=== PATIENT | male | born 1985 | race Caucasian/White ===

== ENCOUNTER 2019-03-13 12:26 | Emergency (ER) | payer BC ==
[~2019-03-13] VITALS: Ht 185.4 cm; Wt 145.4 kg
[2019-03-13] MEDS ORDERED: ZYRTTAB8 PO (12:32)
[2019-03-13] MEDS ORDERED: OXYM05SP (12:32)
--- NOTE | 2019-03-13 13:44 | REP ---
REASON: History of dislocation, now having shoulder pain. FINDINGS: Three views of the left shoulder were performed. The acromioclavicular and glenohumeral relationships are within normal limits. There is no acute fracture or destructive osseous lesions. Electronically Signed by Isidoro Ventura DO 03/13/2019 02:20 P
[2019-03-13] MEDS ORDERED: NAPR-837 PO (14:30)
[2019-03-13 14:35] VITALS: BP 146/89
== END 2019-03-13 14:44 | disposition home or self-care (01) ==
LOC: M ED 12:26
DX: S43.002A Unspecified subluxation of left shoulder joint, initial encounter (principal); X58.XXXA Exposure to other specified factors, initial encounter; Y92.099 Unspecified place in other non-institutional residence as the place of occurrence of the external cause; Y93.9 Activity, unspecified; Y99.9 Unspecified external cause status; J30.2 Other seasonal allergic rhinitis; Z79.899 Other long term (current) drug therapy

== ENCOUNTER → 2019-03-27 | Outpatient (CLI) | payer BC ==
[~2019-03-27] MED LIST: CONRAY-43 43% 50ML VIAL (Q9960) As Ordered ONE; NAPR-837 PO; OXYM05SP; PROHANCE 279.3MG/ML 5ML VIAL (A9576) As Ordered ONE; ZYRTTAB8 PO
--- NOTE | 2019-03-27 13:29 | REP ---
MR arthrography shoulder: with pre and post intra-articular gadolinium enhanced saline injected imaging: History: Left shoulder pain with instability. Question rotator cuff tear. The patient reports several previous dislocations. Comparison MRI study February 05, 2012. Comparison radiographs March 13, 2019. Technique: The injection procedure is performed and dictated separately. Pre and post intra-articular gadolinium enhanced saline injected imaging is acquired. Imaging planes include axial, oblique coronal, and oblique sagittal projection images. The patient was unable to be positioned for the ABER projection images usually obtained. T1 T2-weighted scans are included with and without fat saturation. MRI findings: There i s a marrow edema/contusion pattern in the superolateral aspect of the humeral head on preinjection images. There is some mild marrow edema in the anterior glenoid as well. This may reflect previous anterior inferior glenohumeral dislocation with contusion. No impaction fracture is visible either in the glenoid or in the humeral head however. Finding is new from the 2011 prior MR images. A small quantity of glenohumeral joint effusion on preinjection images. The AC joint shows hypertrophy with inferior spurring indenting the musculotendinous junction of the supraspinatus. Postinjection imaging shows good filling and enhancement of the glenohumeral articulation. There is diffuse enhancement in this subscapularis tendon which is normal on preinjection imaging suggesting injection artifact. There is no evidence of rotator cuff tear. There is some fraying and swelling of the anterior labral cartilage. No loose body is seen. The infraspinatus and biceps tendons appear intact. There is tendonitis tendinosis change again noted in the supraspinatus tendon. No full-thickness cuff tear is seen. Impression: Marrow edema/contusion pattern in the superolateral humeral head and in the anterior bony glenoid. Subtle Hill-Sachs impaction injury suspected. Supraspinatus tendonitis tendinosis change. AC joint hypertrophy. Injection artifact in the subscapularis tendon on post injection images. Electronically Signed by Casey Rodríguez MD 03/27/2019 03:11 P
--- NOTE | 2019-03-27 15:20 | REP ---
Reason For Exam/Comment: Left shoulder pain with instability Procedure: Left shoulder MRI arthrogram The procedure was performed by DENIS Watson, under the direct supervision of Dr. Rodríguez. The benefits and risks including but not limited to pain, infection, bleeding and anaphylaxis were explained to the patient and informed consent was obtained both verbally and written. Directly prior to the start of the procedure, a formal timeout was completed in the procedure room. Technique: The left glenohumeral joint was localized using fluoroscopic guidance. The skin was prepped and draped in the usual sterile fashion. 3 mL of 1% lidocaine was used as a local anesthetic. Using fluoroscopic guidance a 22-gauge spinal needle was inserted and advanced to the left glenohumeral joint space . 2 mL of Conray 43 was injected to verify needle placement. 12 mL of a solution containing 20 ml of sterile saline and a 0.15 ml of ProHance was injected into the joint. The needle was removed and the patient was taken MRI for post procedural imaging. The patient tolerated the procedure well and there were no immediate complications. 0.4 minutes of fluoroscopy time was utilized for this procedure. Some fluoroscopic images are performed with last image hold technology. These images require no additional radiation. Reviewed by DENIS Reza 03/27/2019 09:12 A Electronically Signed by Casey Rodríguez MD 03/27/2019 03:12 P
== END ==
LOC: M RADPRO 06:21
PROVIDERS: ATTEND Physician Assistant
DX: M75.82 Other shoulder lesions, left shoulder (principal); R60.0 Localized edema; M24.412 Recurrent dislocation, left shoulder
CPT/HCPCS: 23350; 73223; 77002; A9576; Q9960

== ENCOUNTER 2019-06-19 05:30 | Day surgery (SDC) | payer BC ==
[~2019-06-19] VITALS: Ht 185.4 cm; Wt 150.6 kg
[~2019-06-19 05:30] MED LIST changes: +AZEL0.05 OU; +CETI5SOL3 PO; -CONRAY-43 43% 50ML VIAL (Q9960) As Ordered ONE; +OMEP20CA4 PO; -PROHANCE 279.3MG/ML 5ML VIAL (A9576) As Ordered ONE; +QNASL; +[UNRECOGNIZED DRUG - REMARK] PA; +allergy shot
[2019-06-19] MEDS ORDERED: ROPIvacaine 0.5% 30 ML INJECTION (J2795 PER 1MG) ONE (05:31)
[2019-06-19] MEDS ORDERED: LR 1,000 ML IV ONE (06:00)
[2019-06-19] MEDS ORDERED: ceFAZolin SOD 2 GM in IV 1 EA IV ONE (06:00)
[2019-06-19] MEDS ORDERED: ceFAZolin SOD 1 GM in D5W MINI-BAG PLUS 50 ML IV ONE (06:00)
[2019-06-19] MEDS ORDERED: LIDOCAINE 1% MDV 20ML VIAL As Ordered ONE (06:57)
[2019-06-19] MEDS ORDERED: EPINEPHrine 1MG/ML INJ 30ML MD-VIAL As Ordered ONE (06:57)
[2019-06-19] MEDS ORDERED: LIDOCAINE 2% INJ 100 MG/5 ML SDV (FOR ANES.) As Ordered ONE (07:10)
[2019-06-19] MEDS ORDERED: ROCURONIUM BROMIDE 50 MG/5 ML VIAL As Ordered ONE (07:10)
[2019-06-19] MEDS ORDERED: PROPOFOL 200 MG/20 ML VIAL As Ordered ONE (07:10)
[2019-06-19] MEDS ORDERED: MIDAZOLAM INJ 2 MG/2 ML VIAL (J2250) As Ordered ONE ×2 (07:11→07:17)
[2019-06-19] MEDS ORDERED: fentaNYL 250 MCG/5 ML INJECTION (J3010) As Ordered ONE (07:11)
[2019-06-19] MEDS ORDERED: fentaNYL 100 MCG/2 ML INJECTION (J3010) As Ordered ONE (07:17)
[2019-06-19] MEDS ORDERED: fentaNYL 100 MCG/2 ML INJECTION (J3010) IV ONE (08:00)
[2019-06-19] MEDS ORDERED: MIDAZOLAM INJ 2 MG/2 ML VIAL (J2250) IV ONE (08:00)
[2019-06-19 09:00] VITALS: BP 160/78
== END 2019-06-19 09:24 | disposition home or self-care (01) ==
LOC: M SDC 05:30
PROVIDERS: ATTEND Orthopaedic Surgery
DX: M25.312 Other instability, left shoulder (principal); M24.412 Recurrent dislocation, left shoulder; Z53.8 Procedure and treatment not carried out for other reasons; K21.9 Gastro-esophageal reflux disease without esophagitis; G47.30 Sleep apnea, unspecified; Z79.899 Other long term (current) drug therapy
CPT/HCPCS: 64415; J2250; J2795

== ENCOUNTER 2019-06-21 10:53 | Day surgery (SDC) | payer BC ==
[~2019-06-21] VITALS: Ht 185.4 cm; Wt 150.1 kg
[~2019-06-21 10:53] MED LIST changes: +LR 1,000 ML IV ONE; +ceFAZolin SOD 1 GM in D5W MINI-BAG PLUS 50 ML IV ONE; +ceFAZolin SOD 2 GM in IV 1 EA IV ONE; +fentaNYL 100 MCG/2 ML INJECTION (J3010) IV SCH
[2019-06-21] MEDS ORDERED: EPINEPHrine INJ 1 MG/ML 1ML AMP ONE (10:54)
[2019-06-21] MEDS ORDERED: dexameTHASONE 10 MG/1 ML VIAL PRES.FREE (J1100) ONE (10:54)
[2019-06-21] MEDS ORDERED: ROPIvacaine 0.5% 30 ML INJECTION (J2795 PER 1MG) ONE (10:54)
[2019-06-21] MEDS ORDERED: EPINEPHrine 1MG/ML INJ 30ML MD-VIAL As Ordered ONE (14:30)
[2019-06-21] MEDS ORDERED: MIDAZOLAM INJ 2 MG/2 ML VIAL (J2250) As Ordered ONE (14:37)
[2019-06-21] MEDS ORDERED: fentaNYL 100 MCG/2 ML INJECTION (J3010) As Ordered ONE ×2 (14:37→15:59)
[2019-06-21] MEDS ORDERED: EPINEPHrine INJ 1 MG/ML 1ML AMP As Ordered ONE (14:38)
[2019-06-21] MEDS: MIDAZOLAM INJ 2 MG/2 ML VIAL (J2250) IV SCH ×2 (14:45→14:52)
[2019-06-21] MEDS ORDERED: PROPOFOL 200 MG/20 ML VIAL As Ordered ONE ×2 (15:58→16:19)
[2019-06-21] MEDS ORDERED: LIDOCAINE 2% INJ 100 MG/5 ML SDV (FOR ANES.) As Ordered ONE (15:58)
[2019-06-21] MEDS ORDERED: ROCURONIUM BROMIDE 50 MG/5 ML VIAL As Ordered ONE (15:58)
[2019-06-21] MEDS ORDERED: METOCLOPRAMIDE INJ 10MG/2ML VIAL (J2765) As Ordered ONE (16:33)
[2019-06-21] MEDS ORDERED: ONDANSETRON 4MG/2ML VIAL (J2405) As Ordered ONE (16:53)
[2019-06-21] MEDS ORDERED: NEOSTIGMINE 10 MG/10 ML VIAL (J2710) As Ordered ONE (16:53)
[2019-06-21] MEDS ORDERED: GLYCOPYRROLATE INJ 0.2 MG/ML 2 ML VIAL As Ordered ONE (16:53)
[2019-06-21] MEDS ORDERED: DESFLURANE 240 ML INHALANT As Ordered ONE (18:10)
[2019-06-21] MEDS ORDERED: LR 1,000 ML IV SCH ×2 (19:30)
[2019-06-21] MEDS ORDERED: ONDANSETRON 4MG/2ML VIAL (J2405) IV PRN (19:30)
[2019-06-21] MEDS ORDERED: oxyCODONE 5MG TAB PO PRN (19:30)
[2019-06-21] MEDS ORDERED: fentaNYL 100 MCG/2 ML INJECTION (J3010) IV PRN (19:30)
[2019-06-21 20:20] VITALS: BP 154/92
--- NOTE | 2019-06-22 13:59 | RO ---
DATE OF SURGERY: 06/21/2019 PREOPERATIVE DIAGNOSES: 1. Left shoulder anterior labral tear with instability. 2. Left shoulder posterior labral tear with instability. 3. Left shoulder chondromalacia. POSTOPERATIVE DIAGNOSES: 1. Left shoulder anterior labral tear with instability. 2. Left shoulder posterior labral tear with instability. 3. Left shoulder chondromalacia. 4. Superior labral tear. PROCEDURES: 1. Left shoulder arthroscopic anterior labral repair (Bankart). 2. Left shoulder posterior labral repair. 3. Left shoulder arthroscopic superior labral debridement. 4. Left shoulder arthroscopic chondroplasty of the glenoid and humeral head. SURGEON: Moris Goodson MD CITY EDITOR: PADMA Faria ANESTHESIA: General with preoperative nerve block. INTRAVENOUS (IV) FLUIDS: Lactated Ringer. ESTIMATED BLOOD LOSS: 5 mL. IMPLANTS: Arthrex 3 mm SutureTak times one and Arthrex 2.9 mm PushLock anchor with labral tape times six. CLOSURE: Nylon. DESCRIPTION OF PROCEDURE: The patient was identified in the preoperative holding area. The left shoulder was marked by me. He had an interscalene nerve block by anesthesia. He was brought to the operating room and placed supine on a well-padded operating room (OR) table with the large beanbag. General anesthesia was then induced. An examination under anesthesia revealed 170 degrees of passive forward flexion, 80 degrees of external rotation with his arm at his side. He had a grade 2+ anterior and posterior load and shift. Extra assist moving help was then required, and he was carefully placed into the [id number] lateral decubitus position with an axillary roll, and all bony prominences well-padded. Bilateral Venodyne boots for deep venous thrombosis (DVT) prophylaxis. The left arm was placed into Arthrex STaR (Shoulder Traction and Rotation) Sleeve lateral decubitus traction baeza with 12 pounds of traction. The left shoulder was then prepped and draped in normal sterile fashion with ChloraPrep. He received 3 grams of intravenous (IV) cefazolin for antibiotic prophylaxis within 1 hour of incision. Diya Alexander was present for the entire procedure and participated all essential portions of the procedure. This included patient positioning and draping, holding the arthroscope, providing axial traction and manipulation to the arm to assist with suture passage, assisting with anchor placement, assisting with loading anchors and cutting sutures arthroscopically, and wound closure and applying the sling. I am requesting a modifier 22 for this procedure due to the significant complexity of the repair and due to the patient's size. The patient has a body mass index (BMI) of 44 and weighs 147 kg. Due to his size, we needed special equipment, specifically a hip arthroscope with appropriate trocars and extra-long cannulas. Given the chronicity of his instability, this also required a complex repair of both four anchor anterior labral repair and a three anchor posterior labral repair. So, due to the patient's size and large nature of this tear, this was a significantly complex case. The left shoulder was insufflated with lactated Ringer. A modified posterolateral portal made with an 11 blade. A 30-degree hip arthroscope was then introduced into the joint, and a diagnostic arthroscopy was carried out. There was tearing of the superior labrum consistent with a low-grade superior labrum anterior and posterior (SLAP) tear. The long head of biceps was unremarkable. There was diffuse tearing of the anterior labrum with some impaction at the anterior inferior glenoid consistent with some low-grade bone loss despite the CAT scan showing no bone loss. The labral tear then extended around the 6 o'clock position posteriorly. There was diffuse grade 1 with a few areas of grade 2 chondromalacia of the glenoid and a similar condition of the humeral head. No full-thickness cartilage loss. There was also a small Hill-Sachs in the posterior humeral head. The rotator cuff was carefully inspected. There was no tearing. I then established a modified anterior inferior portal very carefully due to the patient's body habitus. This gave the appropriate angle for drilling into the glenoid. An accessory superolateral portal was established and two extra-long Arthrex cannulas were placed. There was a positive drive-through sign, and the humeral head was inferiorly subluxated. Hooked radiofrequency cautery was then used to develop the plane between the anterior labral tear and the glenoid. Labral elevators then used to subperiosteally dissect, and then a rasp was used to create a bleeding surface on the glenoid. The anterior inferior capsule and labrum was mobilized. I then placed the Arthrex 3 mm SutureTak at the 5 o'clock position. FiberWire sutures were passed through the anterior band of the inferior glenohumeral ligament with a suture lasso, and they were passed in a horizontal mattress fashion. My security assistant applied a posterior Vector to the proximal humerus, and then arthroscopic knots were tied by hand with alternating half hitches. Sutures cut with the die cutter operator. Next, the lasso was used to shuttle labral tape through capsule and labrum as I proceeded from an inferior to superior direction. A total of three 2.9 mm PushLock anchor were placed, and these anchors were placed from inferior to superior to facilitate a capsular shift. This nicely restored the bumper and eliminated the drive-through sign. The arthroscope was now placed into the anterior superior portal and a third long cannula placed into the posterior portal. The hooked cautery was used to develop the plane between the posterior inferior labral tear and the glenoid, and then again labral elevators were used to subperiosteally dissect. I then placed a total of three 2.9 mm PushLock anchors, the first one grasping the posterior band of the inferior glenohumeral ligament, placed at the 7 o'clock position. Anchors were then appropriately spaced proceeding up the posterior glenoid. Although he had had over 15-year history of posterior dislocations, I did not feel that any additional anchors were required beyond the equator. The humeral head was now centrally located on the glenoid. Chondroplasty performed with a shaver of the humeral head and glenoid. The shoulder was then irrigated and drained. Portals were closed with nylon suture, and then a bulky sterile dressing was applied, and then he was carefully placed into the R-2 sling. He was carefully transferred to the hospital bed, extubated, and transferred to the postanesthesia care unit (PACU) in stable condition. COMPLICATIONS: None.
== END 2019-06-21 20:30 | disposition home or self-care (01) ==
LOC: M SDC 10:53
PROVIDERS: ATTEND Orthopaedic Surgery
DX: S43.432A Superior glenoid labrum lesion of left shoulder, initial encounter (principal); S43.492A Other sprain of left shoulder joint, initial encounter; M94.212 Chondromalacia, left shoulder; M24.412 Recurrent dislocation, left shoulder; M25.312 Other instability, left shoulder; K21.9 Gastro-esophageal reflux disease without esophagitis; R06.83 Snoring; G47.33 Obstructive sleep apnea (adult) (pediatric); Z79.899 Other long term (current) drug therapy; Z68.41 Body mass index [BMI] 40.0-44.9, adult
CPT/HCPCS: 29806; 29826; 64415; C1713; J0690; J1100; J2250; J2405; J2710; J2765; J2795; J3010

== ENCOUNTER → 2020-06-05 | Outpatient (CLI) | payer OTHER ==
[~2020-06-05] MED LIST changes: +ISOVUE-300 61% 50ML VIAL As Ordered ONE; -LR 1,000 ML IV ONE; +OMEP1CAP73 PO; -OMEP20CA4 PO; +PROHANCE 279.3MG/ML 5ML VIAL As Ordered ONE; -ceFAZolin SOD 1 GM in D5W MINI-BAG PLUS 50 ML IV ONE; -ceFAZolin SOD 2 GM in IV 1 EA IV ONE; -fentaNYL 100 MCG/2 ML INJECTION (J3010) IV SCH
== END ==
LOC: M RADPRO 06:39
PROVIDERS: ATTEND Orthopaedic Surgery
DX: M25.512 Pain in left shoulder (principal); Z53.9 Procedure and treatment not carried out, unspecified reason

== ENCOUNTER → 2022-04-15 | Outpatient (CLI) | payer OTHER ==
[~2022-04-15] MED LIST changes: -ISOVUE-300 61% 50ML VIAL As Ordered ONE; -PROHANCE 279.3MG/ML 5ML VIAL As Ordered ONE
[2022-04-15 10:52] LABS: BASO # 0.1 10^3/uL (0.0-0.2); EOS # 0.4 10^3/uL (0.0-0.5); EOS % 4.8 % (0.0-3.0); HEMATOCRIT 43.8 % (42.0-52.0); HEMOGLOBIN 15.1 g/dl (13.5-17.5); LYMPH # 2.2 10^3/uL (1.5-5.0); LYMPH % 27.7 % (24.0-44.0); MEAN CORPUSCULAR HEMOGLOBIN 29.7 pg (27.0-33.0); MEAN CORPUSCULAR HGB CONC 34.5 g/dl (32.0-36.5); MEAN CORPUSCULAR VOLUME 86.1 fl (80.0-96.0); MONO # 0.6 10^3/uL (0.0-0.8); MONO % 7.3 % (2.0-8.0); NEUTROPHILS # 4.7 10^3/uL (1.5-8.5); NEUTROPHILS % 58.8 % (36.0-66.0); PLATELET COUNT, AUTOMATED 237 10^3/uL (150-450); RED BLOOD COUNT 5.09 10^6/uL (4.30-6.10)
[2022-04-15 11:49] LABS: ALBUMIN 4.3 GM/DL (3.2-5.2); ALT/SGPT 78 U/L (12-78); BILIRUBIN,TOTAL 0.5 MG/DL (0.2-1.0); BLOOD UREA NITROGEN 12 MG/DL (7-18); CALCIUM LEVEL 9.5 MG/DL (8.5-10.1); CARBON DIOXIDE LEVEL 28 MEQ/L (21-32); CHLORIDE LEVEL 108 MEQ/L (98-107); CHOLESTEROL LEVEL 124 MG/DL (<200); CHOLESTEROL RISK RATIO 3.179 (<5); CREATININE FOR GFR 0.88 MG/DL (0.70-1.30); GLOMERULAR FILTRATION RATE > 60.0 (>60); GLUCOSE, FASTING 96 MG/DL (70-100); HDL CHOLESTEROL 39 MG/DL (>40); LDL CHOLESTEROL 65 MG/DL (<100); NON-HDL-C 85 MG/DL; POTASSIUM SERUM 4.1 MEQ/L (3.5-5.1); SODIUM LEVEL 141 MEQ/L (136-145); TOTAL PROTEIN 7.8 GM/DL (6.4-8.2); TRIGLYCERIDES LEVEL 100 MG/DL (<150)
== END ==
LOC: M LAB 09:19
PROVIDERS: ATTEND Family Medicine
DX: E66.9 Obesity, unspecified (principal)

== ENCOUNTER → 2022-08-24 | Outpatient (CLI) | payer OTHER | LOC: M RAD 16:48 | PROVIDERS: ATTEND Family Medicine | DX: J32.9 Chronic sinusitis, unspecified (principal) ==

== ENCOUNTER → 2022-09-23 | Outpatient (CLI) | payer OTHER ==
[2022-09-23 12:32] LABS: BASO # 0.1 10^3/uL (0.0-0.2); BASO % 0.7 % (0.0-1.0); EOS # 0.3 10^3/uL (0.0-0.5); EOS % 3.9 % (0.0-3.0); HEMATOCRIT 43.9 % (42.0-52.0); LYMPH # 1.6 10^3/uL (1.5-5.0); LYMPH % 22.8 % (24.0-44.0); MEAN CORPUSCULAR HEMOGLOBIN 29.3 pg (27.0-33.0); MEAN CORPUSCULAR HGB CONC 34.2 g/dl (32.0-36.5); MEAN CORPUSCULAR VOLUME 85.7 fl (80.0-96.0); MONO # 0.4 10^3/uL (0.0-0.8); MONO % 5.5 % (2.0-8.0); NEUTROPHILS # 4.6 10^3/uL (1.5-8.5); NEUTROPHILS % 66.7 % (36.0-66.0); PLATELET COUNT, AUTOMATED 228 10^3/uL (150-450); RED BLOOD COUNT 5.12 10^6/uL (4.30-6.10); WHITE BLOOD COUNT 6.9 10^3/uL (4.0-10.0)
[2022-09-23 13:03] LABS: IMMUNOGLOBULIN G 1054 MG/DL (650-1600); IMMUNOGLOBULIN M 109.7 MG/DL (50-300)
[2022-09-23 14:30] LABS: ALBUMIN 3.9 G/DL (3.2-5.2); ALKALINE PHOSPHATASE 77 U/L (46-116); ALT/SGPT 56 U/L (7.0-40); AST/SGOT 33 U/L (<34); BLOOD UREA NITROGEN 12 MG/DL (9-23); CALCIUM LEVEL 9.1 MG/DL (8.5-10.1); CARBON DIOXIDE LEVEL 28 MMOL/L (20-31); CHLORIDE LEVEL 105 MMOL/L (98-107); CREATININE FOR GFR 0.74 MG/DL (0.70-1.30); GLOMERULAR FILTRATION RATE > 60.0 (>60); GLUCOSE, FASTING 92 MG/DL (60-100); POTASSIUM SERUM 3.8 MMOL/L (3.5-5.1); SODIUM LEVEL 140 MMOL/L (136-145)
[2022-09-23 22:12] LABS: TOTAL PROTEIN 7.1 G/DL (5.7-8.2)
== END ==
LOC: M LAB 11:40
PROVIDERS: ATTEND Allergy & Immunology
DX: J32.9 Chronic sinusitis, unspecified (principal)

== ENCOUNTER 2022-12-17 15:52 | Observation (INO) | payer OTHER ==
[~2022-12-17] VITALS: Ht 185.4 cm; Wt 138.2 kg
[2022-12-17] MEDS ORDERED: LABETALOL 100MG/20ML VIAL IV STA (16:29)
[2022-12-17] MEDS ORDERED: FLUT50SP17 NARES (16:46)
[2022-12-17 17:36] LABS: ALBUMIN 4.5 G/DL (3.2-5.2); ALKALINE PHOSPHATASE 80 U/L (46-116); ALT/SGPT 56 U/L (7.0-40); AST/SGOT 37 U/L (<34); BILIRUBIN,DIRECT 0.3 MG/DL (<0.4); BILIRUBIN,TOTAL 0.8 MG/DL (0.3-1.2); BLOOD UREA NITROGEN 12 MG/DL (9-23); CALCIUM LEVEL 9.1 MG/DL (8.5-10.1); CARBON DIOXIDE LEVEL 26 MMOL/L (20-31); CHLORIDE LEVEL 103 MMOL/L (98-107); CREATININE FOR GFR 1.01 MG/DL (0.70-1.30); GLOMERULAR FILTRATION RATE > 60.0 (>60); GLUCOSE, FASTING 108 MG/DL (60-100); POTASSIUM SERUM 3.7 MMOL/L (3.5-5.1); SODIUM LEVEL 139 MMOL/L (136-145); TOTAL PROTEIN 7.9 G/DL (5.7-8.2)
[2022-12-17 17:37] LABS: FREE T4 1.08 NG/DL (0.89-1.76)
[2022-12-17 17:41] LABS: INR 0.92; PROTHROMBIN TIME 12.6 SECONDS (12.5-14.5)
[2022-12-17 17:42] LABS: PARTIAL THROMBOPLASTIN TIME 26.4 SECONDS (24.8-34.2)
[2022-12-17] MEDS ORDERED: ISOVUE-370 76% 100ML VIAL As Ordered ONE (17:42)
[2022-12-17 17:43] LABS: RSV AMPLIFICATION NEGATIVE (NEGATIVE)
[2022-12-17 17:49] LABS: CPK CREATINE PHOSPHOKINASE 124 U/L (46-171)
[2022-12-17 17:56] LABS: BASO # 0.1 10^3/uL (0.0-0.2); BASO % 0.6 % (0.0-1.0); EOS # 0.1 10^3/uL (0.0-0.5); EOS % 0.9 % (0.0-3.0); HEMATOCRIT 43.4 % (42.0-52.0); HEMOGLOBIN 14.9 g/dl (13.5-17.5); LYMPH # 0.8 10^3/uL (1.5-5.0); LYMPH % 9.2 % (24.0-44.0); MEAN CORPUSCULAR HEMOGLOBIN 29.6 pg (27.0-33.0); MEAN CORPUSCULAR HGB CONC 34.3 g/dl (32.0-36.5); MEAN CORPUSCULAR VOLUME 86.1 fl (80.0-96.0); MONO # 0.3 10^3/uL (0.0-0.8); MONO % 3.7 % (2.0-8.0); NEUTROPHILS # 7.2 10^3/uL (1.5-8.5); NEUTROPHILS % 85.4 % (36.0-66.0); PLATELET COUNT, AUTOMATED 224 10^3/uL (150-450); RED BLOOD COUNT 5.04 10^6/uL (4.30-6.10); WHITE BLOOD COUNT 8.5 10^3/uL (4.0-10.0)
[2022-12-17 18:06] LABS: LIPASE 42 U/L (12-53); THYROID STIMULATING HORMONE 1.595 uIU/ML (0.55-4.78)
[2022-12-17] MEDS ORDERED: HOME MED LIST COMPLETE! XX SCH (20:05)
[2022-12-17] MEDS ORDERED: CETI-24 PO (20:05)
[2022-12-17] MEDS ORDERED: SALI0.6530 NARES (20:05)
[2022-12-17] MEDS ORDERED: ACETAMINOPHEN TAB 650MG DOSE (2X325MG) PO PRN (20:30)
[2022-12-17] MEDS ORDERED: FLUTICASONE PROP 0.05% NASAL SPRAY 16 GM (FLONASE) NARES PRN (21:15)
[2022-12-17] MEDS ORDERED: CETIRIZINE (ZyrTEC) 10 MG TAB PO PRN (21:15)
[2022-12-17] MEDS ORDERED: SODIUM CHLORIDE NASAL 0.65% SPRAY BTL (OCEAN) PRN (21:15)
[2022-12-17] MEDS: CHLORTHALIDONE 12.5MG PER 1/2 TABLET PO SCH (22:42)
[2022-12-18] VITALS (8 sets, daily range): BP systolic 156–184; BP diastolic 78–110
[2022-12-18] MEDS ORDERED: **hydrALAZINE** 10 MG TAB PO ONE (06:10)
[2022-12-18 06:11] LABS: BLOOD UREA NITROGEN 11 MG/DL (9-23); CALCIUM LEVEL 8.9 MG/DL (8.5-10.1); CARBON DIOXIDE LEVEL 26 MMOL/L (20-31); CHLORIDE LEVEL 103 MMOL/L (98-107); CREATININE FOR GFR 0.92 MG/DL (0.70-1.30); GLOMERULAR FILTRATION RATE > 60.0 (>60); GLUCOSE, FASTING 91 MG/DL (60-100); SODIUM LEVEL 140 MMOL/L (136-145)
[2022-12-18] MEDS ORDERED: **hydrALAZINE HCL** 25 MG TAB PO PRN (07:45)
[2022-12-18] MEDS ORDERED: CHLORTHALIDONE 12.5MG PER 1/2 TABLET PO SCH (09:00)
[2022-12-18] MEDS ORDERED: CHLORTHALIDONE 12.5MG PER 1/2 TABLET PO ONE (09:00)
[2022-12-18] MEDS: CHLORTHALIDONE 12.5MG PER 1/2 TABLET PO SCH (09:30)
[2022-12-18] MEDS: OMEPRAZOLE 20MG CAP PO SCH (09:30)
[2022-12-18] MEDS ORDERED: CALCIUM CARBONATE 500 MG CHEW U/D PO PRN (16:25)
[2022-12-19 06:00] VITALS: BP 152/93
[2022-12-19] MEDS ORDERED: CHLORTHALIDONE 25 MG TAB PO SCH (09:00)
[2022-12-19 09:45] VITALS: BP 143/63
[2022-12-19] MEDS: OMEPRAZOLE 20MG CAP PO SCH (09:49)
[2022-12-19] MEDS ORDERED: HYDR25TA PO (11:25)
[2022-12-19] MEDS ORDERED: CHLO25TA PO (11:25)
[2022-12-19 11:42] VITALS: BP 162/98
== END 2022-12-19 12:15 | disposition home or self-care (01) ==
LOC: M ED 15:52 → INTOOBSV 20:26 → M ED INP 20:26 → ENRESERV 12-18 04:30 → M MS5PR 12-18 05:05
PROVIDERS: ADMIT Internal Medicine; ATTEND Family Medicine
DX: I16.9 Hypertensive crisis, unspecified (principal); R60.0 Localized edema; R11.0 Nausea; M25.512 Pain in left shoulder; K21.9 Gastro-esophageal reflux disease without esophagitis; G47.33 Obstructive sleep apnea (adult) (pediatric); U07.0 Vaping-related disorder; J30.2 Other seasonal allergic rhinitis; Z79.899 Other long term (current) drug therapy; Z88.8 Allergy status to other drugs, medicaments and biological substances
CPT/HCPCS: 36415; 70450; 71045; 74177; 76775; 80048; 80076; 81001; 82550; 82553; 83690; 83880; 84439; 84443; 84484; 85025; 85610; 85730; 87631; 93005; 93041; 93970; 93975; 94760; 96374; 99285; Q9967

== ENCOUNTER 2022-12-19 23:37 | Emergency (ER) | payer OTHER ==
[~2022-12-19] VITALS: Ht 185.4 cm; Wt 137.6 kg
[~2022-12-19 23:37] MED LIST changes: +CETI-24 PO; +CHLO25TA PO; +FLUT50SP17 NARES; +HYDR25TA PO; +SALI0.6530 NARES
[2022-12-20] MEDS ORDERED: hydrALAZINE 20MG/ML 1ML VIAL IV ONE (04:10)
[2022-12-20 04:46] VITALS: BP 164/84
== END 2022-12-20 05:20 | disposition home or self-care (01) ==
LOC: M ED 23:37
DX: I10 Essential (primary) hypertension (principal); K21.9 Gastro-esophageal reflux disease without esophagitis; Z79.899 Other long term (current) drug therapy